=== PATIENT | female | born 1975 ===

== ENCOUNTER 2024-08-14 04:43 | Inpatient (IN) | payer MEDICAID, OTHER ==
[~2024-08-14] VITALS: Ht 165.1 cm; Wt 110.8 kg
[~2024-08-14 04:43] MED LIST: DAPA1TAB4 PO; FURO40TA4 PO; METF-372 PO; METO-289 PO; SACU1TAB7 PO; SEMA2INJ3 SC; SPIR25TA8 PO
--- NOTE | 2024-08-14 05:07 | ECG ---
[facility] Test Date: 2024-08-14 Test Time: 05:04:09 Pat Name: MOHAN ACKERMAN Department: ER Room: [address] [place] [address] Gender: F Director Of Veterans Affairs: YUDI : 1975 Requested By: IFRAH WRIGHT Order Number: [id number] Reading MD: Michael Vences Measurements Intervals [place] Rate: 78 P: 67 WA: 185 QRS: 37 QRSD: 97 T: 76 QT: 451 QTc: 514 Interpretive Statements Sinus rhythm LAE, consider biatrial enlargement Prolonged QT interval Electronically Signed On 08-16-2024 20:43:51 PDT by Michael Vences Please click the below link to view image of tracing.
[2024-08-14 05:35] LABS: Basophils # (auto) 0.1 10 ^3/uL (0-0.2); Basophils % (auto) 0.9 % (0.0-2.0); Eosinophils # (auto) 0.3 10 ^3/uL (0-0.8); Eosinophils % (auto) 3.7 % (0.0-7.0); Hematocrit 42.3 % (36.0-46.0); Hemoglobin 13.5 g/dL (12.2-16.2); Lymphocytes # (auto) 2.6 10 ^3/uL (0.4-5.4); Lymphocytes % (auto) 30.4 % (10.0-50.0); Mean Corpuscular Hemoglobin 26.8 pg (28.0-32.0); Mean Corpuscular Volume 83.5 fL (80.0-100.0); Monocytes # (auto) 0.6 10 ^3/uL (0-1.3); Monocytes % (auto) 6.9 % (0.0-12.0); Neutrophils % (auto) 58.1 % (37.0-80.0); Nucleated Red Blood Cells % 0.1 %; Platelet Count (auto) 204 10^3/uL (140-450); Red Blood Cells 5.06 10^6/uL (4.0-5.20); Red Cell Distribution Width 19.2 % (11.8-14.3); White Blood Cell 8.5 10^3/uL (4.4-10.8)
[2024-08-14 05:52] LABS: Alkaline Phosphatase 83 U/L (46-116); Anion Gap 11 (5-15); Aspartate Aminotransferase 13 U/L (13-40); Blood Urea Nitrogen 16 mg/dL (9-23); Carbon Dioxide 21 mmol/L (20-31); Chloride 104 mmol/L (98-107); Potassium 3.8 mmol/L (3.5-5.1); Total Protein 6.9 g/dL (5.7-8.2)
[2024-08-14 05:53] LABS: Bilirubin, Total 0.6 mg/dL (0.2-1.0)
[2024-08-14 05:54] LABS: Alanine Aminotransferase 9 U/L (7-40); Calcium 8.3 mg/dL (8.7-10.4); Glucose 236 mg/dL (74-106); Sodium 136 mmol/L (136-145)
--- NOTE | 2024-08-14 05:54 | DVH ---
EXAM: XR Chest, 1 View CLINICAL INDICATION: SOB TECHNIQUE: Frontal view of the chest. COMPARISON: None FINDINGS: LUNGS AND PLEURAL SPACES: See below. HEART: Cardiomegaly with mild congestion. MEDIASTINUM: Unremarkable. Normal mediastinal contour. BONES/JOINTS: Unremarkable. No acute fracture. OTHER FINDINGS: . IMPRESSION: Cardiomegaly with mild congestion.
--- NOTE | 2024-08-14 05:59 | ED.PDOC ---
SOB-HPI HPI Comments PATIENT C/O SOB AND CHEST TIGHTNESS STARTING YESTERDAY AFTER SHE RAN OUT OF LASIX AT HOME. PT STATES SHE IS COMPLIANT WITH ALL OTHER MEDICATIONS. 02 98% ON ROOM AIR. Denies difficulty breathing, fever, chills, nausea, vomiting, abdominal pain, recent travel or ill contacts. Chief Complaint: Shortness of Breath Time Seen by MD: 04:59 Reviewed notes: Nurses Notes, Medications, Allergies Information Source: Patient Mode of Arrival: Wheelchair Past Medical History PAST MEDICAL HISTORY: Denies Surgical History: Denies all surgeries TRAINING INSTRUCTOR History: No Pertinent TRAINING INSTRUCTOR History Physical Exam General Appearance: No Apparent Distress, Normal HEENT: Normal ENT Inspection, Pharynx Normal, TMs Normal Neck: Full Range of Motion, Non-Tender Respiratory: Chest Non-Tender, Decreased Breath Sounds, No Accessory Muscle Use , No Respiratory Distress Cardiovascular: No Edema, No JVD, No Murmur, No Gallop, Normal Peripheral Pulses, Regular Rate/Rhythm Breast Exam: Deferred Gastrointestinal: No Organomegaly, Non Tender, No Pulsatile Mass, Normal Bowel Sounds, Soft Genitalia: Deferred Pelvic: Deferred Rectal: Deferred Extremities: Normal capillary refill, Normal inspection, Normal range of motion, Non-tender, No pedal edema Musculoskeletal : Apperance: Normal Neurologic: Alert, solar photovoltaic installer II-XII nml as Tested, No Motor Deficits, Normal Affect, Normal Mood, No Sensory Deficits Cerebellar Function: Normal Reflexes: Normal Skin: Dry, Normal Color, Warm Lymphatic: No Adenopathy Was a procedure done? Was a procedure done?: No Differential Dx Differential Diagnosis: Bronchitis, Pneumonia, Pulmonary Embolism X-Ray, Labs, Meds, VS Vital Signs Date Time Temp Pulse Resp B/P (MAP) Pulse Ox O2 Delivery O2 Flow Rate FiO2 08/14/24 12:02 77 22 97 08/14/24 12:00 84 08/14/24 10:27 151/94 08/14/24 10:00 82 21 151/94 (113) 96 08/14/24 08:19 95 Nasal Cannula* 2 28 08/14/24 08:07 97.4 77 22 145/97 (113) 95 97.4 08/14/24 08:07 77 24 95 Nasal Cannula* 2 28 08/14/24 08:00 80 08/14/24 05:04 78 08/14/24 04:55 97.8 78 22 158/103 (121) 98 97.8 Lab Test 08/14/24 09:27 08/14/24 07:35 08/14/24 05:17 Range/Units Magnesium Level 1.9 1.6-2.6 mg/dL Troponin I High Sensitivity 105 *H 88 *H 94 *H </=34 ng/L White Blood Count 8.5 4.4-10.8 10^3/uL Red Blood Count 5.06 4.0-5.20 10^6/uL Hemoglobin 13.5 12.2-16.2 g/dL Hematocrit 42.3 36.0-46.0 % Mean Corpuscular Volume 83.5 80.0-100.0 fL Mean Corpuscular Hemoglobin 26.8 L 28.0-32.0 pg Mean Corpuscular Hemoglobin Concent 32.0 32.0-36.0 g/dL Red Cell Distribution Width 19.2 H 11.8-14.3 % Platelet Count 204 140-450 10^3/uL Mean Platelet Volume 8.7 6.9-10.8 fL Neutrophils (%) (Auto) 58.1 37.0-80.0 % Lymphocytes (%) (Auto) 30.4 10.0-50.0 % Monocytes (%) (Auto) 6.9 0.0-12.0 % Eosinophils (%) (Auto) 3.7 0.0-7.0 % Basophils (%) (Auto) 0.9 0.0-2.0 % Neutrophils # (Auto) 5.0 1.6-8.6 10 ^3/uL Lymphocytes # (Auto) 2.6 0.4-5.4 10 ^3/uL Monocytes # (Auto) 0.6 0-1.3 10 ^3/uL Eosinophils # (Auto) 0.3 0-0.8 10 ^3/uL Basophils # (Auto) 0.1 0-0.2 10 ^3/uL Nucleated Red Blood Cells 0.1 % Sodium Level 136 136-145 mmol/L Potassium Level 3.8 3.5-5.1 mmol/L Chloride Level 104 98-107 mmol/L Carbon Dioxide Level 21 20-31 mmol/L Anion Gap 11 5-15 Blood Urea Nitrogen 16 9-23 mg/dL Creatinine 1.00 0.550-1.02 mg/dL Glomerular Filtration Rate Calc 69 >90 mL/min BUN/Creatinine Ratio 16.0 10.0-20.0 Serum Glucose 236 H 74-106 mg/dL Calcium Level 8.3 L 8.7-10.4 mg/dL Total Bilirubin 0.6 0.2-1.0 mg/dL Aspartate Amino Transferase (AST) 13 13-40 U/L Alanine Aminotransferase (ALT) 9 7-40 U/L Alkaline Phosphatase 83 46-116 U/L B-Type Natriuretic Peptide 1462.50 0-100 pg/mL Total Protein 6.9 5.7-8.2 g/dL Albumin 4.0 3.2-4.8 g/dL X-Ray, Labs, Meds, VS Comment IMAGING: Chest x-ray pending LABS: Patient care and report given to Dr. Fowler. Admission orders placed for CHF and elevated troponin several labs still pending. Time of 1ST Reevaluation: 05:57 Reevaluation 1ST: Unchanged Patient Education/Counseling: Diagnosis, Treatment Family Education/Counseling: No Family Present Departure 1 Departure Time of Disposition: 09:28 (Patient with a worsening shortness of breath. Likely secondary to volume overload. We will admit patient for further workup) Impression: Primary Impression: Systolic dysfunction with acute on chronic heart failure Additional Impressions: Shortness of breath Elevated troponin Disposition: ADMITTED INPATIENT Admit to: [facility] Condition: Serious Critical Care Note Critical Care Time?: No Stability Stability form required: No Heart Score Heart Score: Heart Score Response (Comments) Value History Slightly Suspicious 0 EKG Repolarization Disturb 1 Age 45-64 1 Risk Factors 1 or 2 risk factors 1 Troponin >3 x's Normal limit 2 Total 5 IFRAH WRIGHT Aug 14, 2024 05:59 RENEE BROWN MD Aug 14, 2024 09:30
[2024-08-14 08:07] VITALS: PULSE 77; RESP 24; O2SAT 95
[2024-08-14] MEDS: FUROSEMIDE 40 MG/4 ML VIAL IV ONE (10:27)
--- NOTE | 2024-08-14 12:56 | DVHHP2 ---
History of Present Illness Reason for Visit: Shortness of the breath and chest pain History of Present Illness 49-year-old female past medical history CHF diabetes kidney stage 3 sleep apnea obesity denies surgical history chief complaint patient states she ran out of Lasix yesterday and since then she has been having some shortness of the breath and chest pain. She states it is midsternal. She states she also had some swelling to her legs with no calf pain. Patient does state she takes her medications as prescribed. Exertion makes her symptoms worse. At rest improves her symptoms. When evaluating patient's labs and imaging from the ED CBC was unremarkable glucose was 236 troponin x3 was elevated BNP was 14 62 chest x-ray shows cardiomegaly with congestion. With these findings we will admit for CHF exacerbation ask for Cardiology evaluation to rule out NSTEMI Past Medical History See HPI above Past Surgical History See HPI above Family History Reviewed, non-contributory to the management of this case. Past Social History The patient lives at home, denies smoking, alcohol or illicit drugs abuse. Review of Systems Constitutional: No: Fever, Chills, Sweats, Weakness, Malaise, Other Eyes: No: Pain, Vision change, Conjunctivae inflammation, Eyelid inflammation, Other, Redness ENT: No: Ear pain, Ear discharge, Nose pain, Nose discharge, Nose congestion, Mouth pain, Mouth swelling, Throat pain, Throat swelling, Other Respiratory: Shortness of breath, SOB with excertion; No: Cough, Dry, Wheezing, Hemoptysis, Pleuritic Pain, Sputum, Wheezing, Other Cardiovascular: Chest Pain; No: Palpitations, Orthopnea, Paroxysmal Noc. Dyspnea, Edema, Lt Headedness, Other Gastrointestinal: No: Nausea, Vomiting, Abdominal Pain, Diarrhea, Constipation, Melena, Hematochezia, Other Genitourinary: No Dysuria, No Frequency, No Incontinence, No Hematuria, No Retention, No Other Musculoskeletal: No: other, neck pain, shoulder pain, arm pain, back pain, hand pain, leg pain, foot pain Skin: No: Rash, Lesions, Jaundice, Bruising, Other Neurological: No: Weakness, Numbness, Incoordination, Change in speech, Confusion, Seizures, Other Allergies: Coded Allergies: NO KNOWN ALLERGIES (Unverified , 08/14/24) Exam Vital Signs Vital Signs Date Time Temp Pulse Resp B/P (MAP) Pulse Ox O2 Delivery O2 Flow Rate FiO2 08/14/24 12:02 77 22 97 08/14/24 10:27 151/94 08/14/24 08:19 Nasal Cannula* 2 28 08/14/24 08:07 97.4 97.4 General Appearance: Alert, Oriented X3, Cooperative, mild distress HEENT: Atraumatic, PERRLA, EOMI, Mucous membr. moist/pink Respiratory: Other (Coarse rales heard throughout) Cardiovascular: Regular rate, Normal S1, Normal S2, No murmurs Abdominal: Normal bowel sounds, Soft, No tenderness, No hepatospenomegaly, No masses Extremities: No clubbing, No cyanosis, No edema, Normal pulses, No tenderness/swelling Skin: No rashes, No breakdown, No significant lesion Neuro: Normal gait, Normal speech, Strength at 5/5 X4 ext, Normal tone, Sensation intact, Cranial nerves 3-12 NL Psych/Mental Status: Mental status NL, Mood NL Labs/Xrays Chest x-ray shows cardiomegaly and vascular congestion I reviewed labs, imaging CT scan abdomen pelvis, EKG and all diagnostic studies on this patient from ED records and the medical chart Labs Test 08/14/24 09:27 08/14/24 05:17 Range/Units Troponin I High Sensitivity 105 *H </=34 ng/L White Blood Count 8.5 4.4-10.8 10^3/uL Red Blood Count 5.06 4.0-5.20 10^6/uL Hemoglobin 13.5 12.2-16.2 g/dL Hematocrit 42.3 36.0-46.0 % Mean Corpuscular Volume 83.5 80.0-100.0 fL Mean Corpuscular Hemoglobin 26.8 L 28.0-32.0 pg Mean Corpuscular Hemoglobin Concent 32.0 32.0-36.0 g/dL Red Cell Distribution Width 19.2 H 11.8-14.3 % Platelet Count 204 140-450 10^3/uL Mean Platelet Volume 8.7 6.9-10.8 fL Neutrophils (%) (Auto) 58.1 37.0-80.0 % Lymphocytes (%) (Auto) 30.4 10.0-50.0 % Monocytes (%) (Auto) 6.9 0.0-12.0 % Eosinophils (%) (Auto) 3.7 0.0-7.0 % Basophils (%) (Auto) 0.9 0.0-2.0 % Neutrophils # (Auto) 5.0 1.6-8.6 10 ^3/uL Lymphocytes # (Auto) 2.6 0.4-5.4 10 ^3/uL Monocytes # (Auto) 0.6 0-1.3 10 ^3/uL Eosinophils # (Auto) 0.3 0-0.8 10 ^3/uL Basophils # (Auto) 0.1 0-0.2 10 ^3/uL Nucleated Red Blood Cells 0.1 % Sodium Level 136 136-145 mmol/L Potassium Level 3.8 3.5-5.1 mmol/L Chloride Level 104 98-107 mmol/L Carbon Dioxide Level 21 20-31 mmol/L Anion Gap 11 5-15 Blood Urea Nitrogen 16 9-23 mg/dL Creatinine 1.00 0.550-1.02 mg/dL Glomerular Filtration Rate Calc 69 >90 mL/min BUN/Creatinine Ratio 16.0 10.0-20.0 Serum Glucose 236 H 74-106 mg/dL Calcium Level 8.3 L 8.7-10.4 mg/dL Total Bilirubin 0.6 0.2-1.0 mg/dL Aspartate Amino Transferase (AST) 13 13-40 U/L Alanine Aminotransferase (ALT) 9 7-40 U/L Alkaline Phosphatase 83 46-116 U/L B-Type Natriuretic Peptide 1462.50 0-100 pg/mL Total Protein 6.9 5.7-8.2 g/dL Albumin 4.0 3.2-4.8 g/dL Assessment/Plan Assessment/Plan Acute congestive systolic or diastolic heart failure found on cxr and bnp elevated ordered echo fu results ordered Lasix, asa. atorvastatin strict i/o's bnp >1500 consider bipap if worsening resp distress ordered cards consult fu results restrict sodium daily wt acute chest pain likely nstemi ekg no stemi trop x3 positive ordered asa atorvastatin ordered echo fu results ordered cards consult fu results chronic problems chf dm ISS ckd stage 3 sleep apnea cpap prn obesity fen/ppx scd no gi ppx since no hx of gerds or gi bleed diet hl heparin plan admit to tele cards consult fu recs Plan discussed with: Patient Date of Service: Aug 14, 2024 Billing Provider: LEONOR ALBERT DNP Common Visit Codes: [id number] INP/OBS CARE (HIGH) LEONOR ALBERT DNP Aug 14, 2024 12:56
[2024-08-14] MEDS ORDERED: NITROGLYCERIN 0.4 MG SL TAB SL PRN (14:00)
[2024-08-14] MEDS ORDERED: DEXTROSE (50%) 50ML SYRG IV PRN (14:00)
--- NOTE | 2024-08-14 14:59 | DVHINCON2 ---
Date Seen: Aug 14, 2024 Referring Physician LUIS Linares Reason for Consultation Acute on chronic heart failure History of Present Illness This is a 49-year-old female patient who presents to the emergency room with chief complaint of worsening shortness of breath for one day. The patient sta genet that she ran out of her Lasix at home and felt extremely short of breath. She came to this facility for further evaluation. Cardiology has been consulted at this time for CHF exacerbation. Initial twelve lead electrocardiogram reveals normal sinus rhythm without any significant ST segment changes and prolonged QTc interval. Initial troponin level of 94ng/L with flat trend t hereafter. Initial BNP level of 1462.50pg/mL. Significant past medical history includes congestive heart failure, type 2 diabetes mellitus, sleep apnea with CPAP use, and morbid obesity. The patient admits to dietary indiscretions at home, stating that she has been eating a lot of fast food lately. 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 She reports that she follows up with a hyperbaric technologist at [facility]. Past Medical History Past medical history reviewed. No other significant than mentioned above. Past Surgical History Denies Family History Family history reviewed. Social History Patient has a five pack-year history, quit smoking approximately three years ago Patient admits to methamphetamine use, last time approximately one week ago Denies any alcohol use Allergies: Coded Allergies: NO KNOWN ALLERGIES (Unverified , 08/14/24) Home Meds Home medications reviewed. Current Medications Current Medications Medications (Trade) Dose Ordered Sig/Lily Route PRN Reason Start Time Stop Time Status Last Admin Heparin Sodium (Porcine) 5,000 units Q12HR SC 08/14/24 22:00 Atorvastatin Calcium (Lipitor) 40 mg HS PO 08/14/24 22:00 Metoprolol Tartrate (Lopressor Tablet) 25 mg BID PO 08/14/24 22:00 Nitroglycerin (Ntrostat Sublingual) 0.4 mg Q5MINP PRN SL FOR CHEST PAIN 08/14/24 14:00 Diagnostic Test (Pha) (Accu-Chek Comfort Curve T) 1 strip ACHS 08/14/24 17:00 Insulin Human Regular (InsuLIN R) ACHS SC 08/14/24 17:00 Dextrose 50 ml UD PRN IV Blood Sugar LESS THAN 60 08/14/24 14:00 Hydralazine HCl (Apresoline Injection) 10 mg Q6HP PRN IV SBP>150 08/14/24 14:30 UNV Review of Systems Constitutional: No symptom reported Ears, Nose, & Throat: No symptom reported Eyes: No symptom reported Neurological: No symptoms reported Pulmonary/Respiratory: Shortness of breath Cardiovascular: No symptom reported Gastrointestinal: No symptom reported Genitourinary: No symptom reported Musculoskeletal: No symptom reported Skin: No symptom reported Psychiatric: No symptom reported Endocrine: No symptom reported Hematologic/Lymphatic: No symptom reported Vital Signs Vital Signs Date Time Temp Pulse Resp B/P (MAP) Pulse Ox O2 Delivery O2 Flow Rate FiO2 08/14/24 12:02 77 22 97 08/14/24 10:27 151/94 08/14/24 08:19 Nasal Cannula* 2 28 08/14/24 08:07 97.4 97.4 Physical Exam General Appearance: Cooperative. Well-developed. Well-nourished. No acute distress. Pulmonary/Respiratory: Clear, bilateral breaths sounds. Cardiovascular/Chest: Regular rate and rhythm. Peripheral Pulses: 2+ Radial (R). 2+ Radial (L). 2+ Pedal (R). 2+ Pedal (L) Abdominal Exam: Normal bowel sounds. Ankle Exam: 2+ pitting edema Lower extremities: 2+ pitting edema Neuro/Mental Status: A/OX4, coherent. Thoughts/Psych: Normal thought pattern. Appropriate mood and affect. Good judgment and insight. Appearance: No acute distress. Skin Exam: Normal inspection. Normal color. Warm and dry. Labs/Diagnostic Data Labs Test 08/14/24 09:27 08/14/24 05:17 Range/Units Troponin I High Sensitivity 105 *H </=34 ng/L White Blood Count 8.5 4.4-10.8 10^3/uL Red Blood Count 5.06 4.0-5.20 10^6/uL Hemoglobin 13.5 12.2-16.2 g/dL Hematocrit 42.3 36.0-46.0 % Mean Corpuscular Volume 83.5 80.0-100.0 fL Mean Corpuscular Hemoglobin 26.8 L 28.0-32.0 pg Mean Corpuscular Hemoglobin Concent 32.0 32.0-36.0 g/dL Red Cell Distribution Width 19.2 H 11.8-14.3 % Platelet Count 204 140-450 10^3/uL Mean Platelet Volume 8.7 6.9-10.8 fL Neutrophils (%) (Auto) 58.1 37.0-80.0 % Lymphocytes (%) (Auto) 30.4 10.0-50.0 % Monocytes (%) (Auto) 6.9 0.0-12.0 % Eosinophils (%) (Auto) 3.7 0.0-7.0 % Basophils (%) (Auto) 0.9 0.0-2.0 % Neutrophils # (Auto) 5.0 1.6-8.6 10 ^3/uL Lymphocytes # (Auto) 2.6 0.4-5.4 10 ^3/uL Monocytes # (Auto) 0.6 0-1.3 10 ^3/uL Eosinophils # (Auto) 0.3 0-0.8 10 ^3/uL Basophils # (Auto) 0.1 0-0.2 10 ^3/uL Nucleated Red Blood Cells 0.1 % Sodium Level 136 136-145 mmol/L Potassium Level 3.8 3.5-5.1 mmol/L Chloride Level 104 98-107 mmol/L Carbon Dioxide Level 21 20-31 mmol/L Anion Gap 11 5-15 Blood Urea Nitrogen 16 9-23 mg/dL Creatinine 1.00 0.550-1.02 mg/dL Glomerular Filtration Rate Calc 69 >90 mL/min BUN/Creatinine Ratio 16.0 10.0-20.0 Serum Glucose 236 H 74-106 mg/dL Calcium Level 8.3 L 8.7-10.4 mg/dL Total Bilirubin 0.6 0.2-1.0 mg/dL Aspartate Amino Transferase (AST) 13 13-40 U/L Alanine Aminotransferase (ALT) 9 7-40 U/L Alkaline Phosphatase 83 46-116 U/L B-Type Natriuretic Peptide 1462.50 0-100 pg/mL Total Protein 6.9 5.7-8.2 g/dL Albumin 4.0 3.2-4.8 g/dL Assessment Acute on chronic decompensated HFrEF, NYHA class III Hypertensive urgency NSTEMI, type II secondary to above Type 2 diabetes mellitus Obstructive sleep apnea with CPAP use at night Morbid obesity Plan/Recommendation We will continue with the following plan/recommendations (Dr. Vences): * Transthoracic echocardiogram to evaluate cardiac function * Initiate guideline directed medical therapy for CHF * Strict intake and output, daily weights, maintain fluid restriction * Preload and afterload reduction * Aggressive BP control * Close Cardiac surveillance * Risk factor modifications, counseled * Lifestyle and dietary changes * Cessation of amphetamine use Thank you for allowing us to care for this patient. Please call with any questions or concerns. Critical care time spent: 44 minutes This medical document was created using an electronic medical record system with voice recognition software and computerized dictation system. Although this document has been carefully reviewed, there might still be some phonetic and typographical errors. Occasional wrong-word or ``sound-alike substitutions may have occurred due to the inherent limitations of voice recognition software. These areas are purely typographical due to imperfections of the software programs and do not reflect any compromise in the patient's medical care. Please read the chart carefully and recognize, using context, where these substitutions have occurred. Plan discussed with: Patient NYHA Physical activity limitations: Class3(Marked) ordinary (activity causes symtoms) Date of Service: Aug 14, 2024 Billing Provider: VENU PERSAUD Cardiology Common Codes: [id number] INP/OBS CARE (High) Cardiology Consultation Codes: [id number] CONSULT <45MIN VENU PERSAUD Aug 14, 2024 14:59
[2024-08-14] MEDS: hydrALAZINE HCL 20 MG/ML VL IV PRN (15:05)
[2024-08-14] MEDS: ACCU-CHEK COMFORT CURVE STRIP VI SCH (17:00)
[2024-08-14] MEDS: InsuLIN REG 1unit/0.01ml Soln (100units/ml) SC SCH (17:00)
[2024-08-14] MEDS: SPIRONOLACTONE 25 MG TAB PO ONE (17:33)
[2024-08-14 18:13] LABS: Amphetamine Screen, Urine Neg (NEGATIVE)
[2024-08-14 18:32] LABS: Barbiturate Scree,Urine Neg (NEGATIVE); Benzodiazephine Screen, Urine Neg (NEGATIVE); Cannabinoid Screen, Urine Neg (NEGATIVE); Cocaine Screen, Urine Neg (NEGATIVE); Opiate Scree,Urine Neg (NEGATIVE); Phencyclidine Screen, Urine Neg (NEGATIVE)
[2024-08-14] MEDS: FUROSEMIDE 40 MG/4 ML VIAL IV SCH (18:38)
[2024-08-14 20:15] VITALS: PULSE 93; RESP 16; O2SAT 95
[2024-08-14] MEDS ORDERED: FUROSEMIDE 40 MG/4 ML VIAL IV ONE (22:00)
[2024-08-14] MEDS: HEPARIN SODIUM (PORCINE) 5000 UNITS/ML 1ML VIAL SC SCH (22:34)
[2024-08-14] MEDS: METOPROLOL TARTRATE 25 MG TAB PO SCH (22:40)
[2024-08-14] MEDS: ATORVASTATIN 20 MG TAB PO SCH (22:41)
[2024-08-14] MEDS: SACUBITRIL-VALSARTAN 24mg/26mg TAB PO SCH (22:41)
[2024-08-15 05:11] LABS: Basophils # (auto) 0.1 10 ^3/uL (0-0.2); Basophils % (auto) 0.7 % (0.0-2.0); Eosinophils # (auto) 0.4 10 ^3/uL (0-0.8); Eosinophils % (auto) 3.6 % (0.0-7.0); Hematocrit 44.8 % (36.0-46.0); Hemoglobin 14.3 g/dL (12.2-16.2); Lymphocytes % (auto) 19.6 % (10.0-50.0); Mean Corpuscular Hemoglobin 26.5 pg (28.0-32.0); Mean Corpuscular Hgb Conc. 31.9 g/dL (32.0-36.0); Monocytes # (auto) 0.6 10 ^3/uL (0-1.3); Monocytes % (auto) 5.9 % (0.0-12.0); Neutrophils # (auto) 7.3 10 ^3/uL (1.6-8.6); Neutrophils % (auto) 70.2 % (37.0-80.0); Nucleated Red Blood Cells % 0.1 %; Platelet Count (auto) 138 10^3/uL (140-450); Red Blood Cells 5.39 10^6/uL (4.0-5.20); Red Cell Distribution Width 19.7 % (11.8-14.3); White Blood Cell 10.3 10^3/uL (4.4-10.8)
[2024-08-15 05:21] LABS: Alanine Aminotransferase 12 U/L (7-40); Albumin 4.6 g/dL (3.2-4.8); Alkaline Phosphatase 91 U/L (46-116); Anion Gap 11 (5-15); Aspartate Aminotransferase 15 U/L (13-40); Blood Urea Nitrogen 15 mg/dL (9-23); Calcium 9.2 mg/dL (8.7-10.4); Carbon Dioxide 25 mmol/L (20-31); Chloride 102 mmol/L (98-107); Cholesterol 154 mg/dL (< 200); LDL Cholesterol 99 mg/dL (< 100); Sodium 138 mmol/L (136-145); Total Protein 7.7 g/dL (5.7-8.2)
[2024-08-15 05:22] LABS: Bilirubin, Total 1.1 mg/dL (0.2-1.0); Glucose 168 mg/dL (74-106); HDL Cholesterol 26 mg/dL (40-59); Potassium 3.5 mmol/L (3.5-5.1); Triglycerides 184 mg/dL (< 150)
[2024-08-15 07:22] VITALS: PULSE 93; RESP 20; TEMP 97.8; O2SAT 98
[2024-08-15] MEDS: EMPAGLIFLOZIN 10 MG TAB PO SCH (10:56)
[2024-08-15] MEDS: SPIRONOLACTONE 25 MG TAB PO SCH (10:59)
[2024-08-15 12:38] VITALS: BP 147/81; PULSE 71; RESP 14; O2SAT 95
--- NOTE | 2024-08-15 19:07 | DVHDSRES ---
Discharge Summary Date of Admission Resident Creating Document: LORENAMARION RESIDENT Aug 14, 2024 at 13:51 Date of Discharge: Aug 15, 2024 Admitting Diagnosis SHORTNESS OF BREATH Labs/Diagnostic Data: PATIENT: MOHAN ACKERMAN ACCT: [id number] UNIT: [id number] : 1975 LOC: ER ROOM / BED: / AGE / SEX: 49 / F ADM STATUS: REG ER SERVICE 0500 ORDERING PHYSICIAN: IFRAH WRIGHT PROCEDURE(s): CXR2 - CHEST TWO VIEWS ROUTINE REASON: SOB ORDER NUMBER(s): [id number], ACCESSION NUMBER(s): [id number] EXAM: XR Chest, 1 View CLINICAL INDICATION: SOB TECHNIQUE: Frontal view of the chest. COMPARISON: None FINDINGS: LUNGS AND PLEURAL SPACES: See below. HEART: Cardiomegaly with mild congestion. MEDIASTINUM: Unremarkable. Normal mediastinal contour. BONES/JOINTS: Unremarkable. No acute fracture. OTHER FINDINGS: . IMPRESSION: Cardiomegaly with mild congestion. ATED BY: JUVENCIO SALAZAR MD DICTATED DATE/TIME: 08/14/24 0551 Laboratory Results Test 08/15/24 11:36 08/15/24 04:25 08/14/24 14:29 08/14/24 09:27 POC Glucose 353 mg/dl (70-106) White Blood Count 10.3 10^3/uL (4.4-10.8) Red Blood Count 5.39 10^6/uL (4.0-5.20) Hemoglobin 14.3 g/dL (12.2-16.2) Hematocrit 44.8 % (36.0-46.0) Mean Corpuscular Volume 83.0 fL (80.0-100.0) Mean Corpuscular Hemoglobin 26.5 pg (28.0-32.0) Mean Corpuscular Hemoglobin Concent 31.9 g/dL (32.0-36.0) Red Cell Distribution Width 19.7 % (11.8-14.3) Platelet Count 138 10^3/uL (140-450) Mean Platelet Volume 9.0 fL (6.9-10.8) Neutrophils (%) (Auto) 70.2 % (37.0-80.0) Lymphocytes (%) (Auto) 19.6 % (10.0-50.0) Monocytes (%) (Auto) 5.9 % (0.0-12.0) Eosinophils (%) (Auto) 3.6 % (0.0-7.0) Basophils (%) (Auto) 0.7 % (0.0-2.0) Neutrophils # (Auto) 7.3 10 ^3/uL (1.6-8.6) Lymphocytes # (Auto) 2.0 10 ^3/uL (0.4-5.4) Monocytes # (Auto) 0.6 10 ^3/uL (0-1.3) Eosinophils # (Auto) 0.4 10 ^3/uL (0-0.8) Basophils # (Auto) 0.1 10 ^3/uL (0-0.2) Nucleated Red Blood Cells 0.1 % Sodium Level 138 mmol/L (136-145) Potassium Level 3.5 mmol/L (3.5-5.1) Chloride Level 102 mmol/L (98-107) Carbon Dioxide Level 25 mmol/L (20-31) Anion Gap 11 (5-15) Blood Urea Nitrogen 15 mg/dL (9-23) Creatinine 1.00 mg/dL (0.550-1.02) Glomerular Filtration Rate Calc 69 mL/min (>90) BUN/Creatinine Ratio 15.0 (10.0-20.0) Serum Glucose 168 mg/dL (74-106) Hemoglobin A1c 10.1 % A1C (<5.7) Calcium Level 9.2 mg/dL (8.7-10.4) Total Bilirubin 1.1 mg/dL (0.2-1.0) Aspartate Amino Transferase (AST) 15 U/L (13-40) Alanine Aminotransferase (ALT) 12 U/L (7-40) Alkaline Phosphatase 91 U/L (46-116) Total Protein 7.7 g/dL (5.7-8.2) Albumin 4.6 g/dL (3.2-4.8) Triglycerides Level 184 mg/dL (< 150) Cholesterol Level 154 mg/dL (< 200) LDL Cholesterol 99 mg/dL (< 100) HDL Cholesterol 26 mg/dL (40-59) Thyroid Stimulating Hormone (TSH) 1.53 uIU/mL (0.55-4.78) Urine Opiates Screen Neg (NEGATIVE) Urine Fentanyl Screen Neg (NEGATIVE) Urine Barbiturates Screen Neg (NEGATIVE) Urine Phencyclidine Screen Neg (NEGATIVE) Urine Amphetamines Screen Neg (NEGATIVE) Urine Benzodiazepines Screen Neg (NEGATIVE) Urine Cocaine Screen Neg (NEGATIVE) Urine Cannabinoids Screen Neg (NEGATIVE) Magnesium Level 1.9 mg/dL (1.6-2.6) Troponin I High Sensitivity 105 ng/L (</=34) Test 08/14/24 05:17 B-Type Natriuretic Peptide 1462.50 pg/mL (0-100) Other Laboratory Tests 08/15/24 04:25 Brief Hx & Hospital Course: HISTORY AND PHYSICAL 49-year-old female past medical history CHF diabetes kidney stage 3 sleep apnea obesity denies surgical history chief complaint patient states she ran out of Lasix yesterday and since then she has been having some shortness of the breath and chest pain. She states it is midsternal. She states she also had some swelling to her legs with no calf pain. Patient does state she takes her medications as prescribed. Exertion makes her symptoms worse. At rest improves her symptoms. When evaluating patient's labs and imaging from the ED CBC was unremarkable glucose was 236 troponin x3 was elevated BNP was 14 62 chest x-ray shows cardiomegaly with congestion. With these findings we will admit for CHF exacerbation ask for Cardiology evaluation to rule out NSTEMI Past Medical History: CHF diabetes kidney stage 3 sleep apnea obesity Past Surgical History:BTL Family History:Reviewed, non-contributory to the management of this case. Past Social History:The patient lives at home, denies smoking, alcohol or illicit drugs abuse. Brief Hospital course Patient is a 49-year-old female with a past medical history of hypertension, diabetes, CKD3 and CHF. Patient presented to the ED yesterday because she ran out of her Lasix. According to the patient, whenever she does not take her lasix, she becomes short of breath and finds it difficult to ambulated from one point to another. She currently takes 40 mg lasix daily. She ran out of supply and she is having difficulties breathing.Therefore, she presented to the ED for evaluation. Vitals show elevated BP:158/103. Lab work in the ED showed BNP 1462, troponin 94-->105. Chest x-ray showed Cardiomegaly with mild congestion. Patient received IV furosemide 40mg BID and started on GDMT. Patient was also seen by the cardiology team. By this afternoon, patient reported feeling better and the her PCP had send her furosemide to her pharmacy. I mentioned to the patient that since lasix 40 mg daily is not really helping i advised that she see our cardiology for advise. By 1 PM this afternoon, patient left AMA. Review of symptoms Constitutional: Denies fever no chills no feeling of malaise HEENT: Denies headache, ear pain, ear discharges, conjunctivitis, nasal discharge throat pain Cardiovascular: Denies chest pain, palpitation, orthopnea, PND, or pedal edema Respiratory: Denies shortness of breath, cough cough, sputum production, hemoptysis, GI: Denies abdominal pain, nausea, vomiting, diarrhea, hematemesis, hematochezia, : Denies frequency, urgency, hematuria, Endocrine: Denies unintentional weight gain or weight loss, feeling of hot flashes, Mike: Denies easy bruising, bleeding disorders, epistaxis Musculoskeletal: Denies joint pains, muscle aches Psych: No evidence of depression, carolyn, suicidal ideation Examination General Appearance: Alert, Oriented X3, Cooperative, No acute distress HEENT: Atraumatic, PERRLA, EOMI, Mucous membrane moist/pink Respiratory:mild crackle Cardiovascular: Regular rate, Normal S1, Normal S2, No murmurs, no chest wall tenderness Abdominal: NO distention, no tenderness, bowel sounds present, no scars noted Extremities: Mild Examination; No clubbing, No cyanosis, Normal pulses, No tenderness/swelling Skin: No rashes, No breakdown, No significant lesion Neuro: Normal gait, Normal speech, Strength at 5/5 X4 ext, Normal tone, Sensation intact, Cranial nerves 3-12 NL, Reflexes 2+ Psych/Mental Status: Mental status NL, Mood NL Diagnoses Acute on chronic decompensated HFrEF, NYHA class III Hypertensive urgency NSTEMI, type II secondary to above Type 2 diabetes mellitus Obstructive sleep apnea with CPAP use at night Obesity grade [address] Wilson Consults/Reason for consult Reason for Consultation: Acute on chronic heart failure Condition at Discharge: Undetermined Final Diagnosis/Problems List Acute on chronic decompensated HFrEF, NYHA class III Hypertensive urgency NSTEMI, type II secondary to above Type 2 diabetes mellitus Obstructive sleep apnea with CPAP use at night Obesity grade 3 Discharge Disposition: AMA Discharge Statement: "Patient was advised to return to the ER or call 911 if any headaches, dizziness, shortness of breath, chest pain, abdominal pain, bleeding, fevers, or worsening of medical condition. Patient was counseled about treatment plan, medications, possible side effects, patientverbalized understanding. All questions were answered to the best of my ability. This discharge took greater then 30 minutes in planning, reviewing documentation, counseling the patient, and discussing with other team members." ASSESSMENT ASSESSMENT Assessment MARION CARRILLO RESIDENT Aug 15, 2024 19:07
--- NOTE | 2024-08-17 17:04 | DVHSR ---
APPROVED REPORT EXAM: Two-dimensional and M-mode echocardiogram with Doppler and color Doppler. Blood Pressure: 151/94 mmHg INDICATION Eval for cardiac function and EF RISK FACTORS Obesity: Height: 5'5", Weight: 244 DIMENSIONS LVDd5.9 (3.8-5.7cm)LA (2D)4.5 (1.9-4.0cm)Aortic Root3.0 (2.0-3.7cm) LVDs5.5 (2.5-4.0cm)LA (MM) (1.9-4.0cm)Aortic Cusp Exc1.8 (1.5-2.0cm) EF (%) 10.0 (55-70%)Rt. Atrium5.3 (1.9-4.0cm)Asc. Aorta cm IVSd1.4 (0.7-1.1cm)RV (D)5.6 (1.8-2.4cm) PWd1.4 (0.7-1.1cm) Mitral Valve MitralMitral Stenosis E wave0.85m/sMV Mean GR.mmHg A wave0.42m/sMV Peak GR.mmHg E/A ratio2.02D MVAcm2 DECEL [id number] 1/2 Timems Aortic Valve Aortic ValveAortic Stenosis V10.53m/Dandre Mean GR.1mmHg V20.75m/Dandre Peak GR.2mmHg LVOT Diameter2.2 (1.8-2.4cm)Doppler AVA2.68cm2 Pulmonic Valve V20.74m/s Tricuspid Valve TR Velocity3.35m/s [id number] Conclusion lvef <20% by visual estimate dilated LV severe dysfunction RV dysfunction biatrial enlargement severe mitral regurg severe tricuspid regurg
== END 2024-08-15 12:56 | disposition left against medical advice (07) | DRG 194 ==
LOC: ER 04:43 → OVERFLOW 13:51 → UNDODISIN 08-15 00:56
PROVIDERS: ADMIT Student in an Organized Health Care Education/Training Program; ATTEND Student in an Organized Health Care Education/Training Program
DX: I13.0 Hypertensive heart and chronic kidney disease with heart failure and stage 1 through stage 4 chronic kidney disease, or unspecified chronic kidney disease (principal); I21.A1 Myocardial infarction type 2; E11.22 Type 2 diabetes mellitus with diabetic chronic kidney disease; I50.23 Acute on chronic systolic (congestive) heart failure; E66.01 Morbid (severe) obesity due to excess calories; Z53.29 Procedure and treatment not carried out because of patient's decision for other reasons; F15.90 Other stimulant use, unspecified, uncomplicated; G47.33 Obstructive sleep apnea (adult) (pediatric); I16.0 Hypertensive urgency; N18.30 Chronic kidney disease, stage 3 unspecified; G47.30 Sleep apnea, unspecified; Z68.41 Body mass index [BMI] 40.0-44.9, adult; Z91.199 Patient's noncompliance with other medical treatment and regimen due to unspecified reason; Z79.899 Other long term (current) drug therapy
CPT/HCPCS: 36415; 71046; 80053; 80061; 80307; 82962; 83036; 83735; 83880; 84443; 84484; 85025; 93005; 93306; 96374; A4565; G0378; J1815